=== PATIENT | female | born 1970 | race African-American/Black ===

== ENCOUNTER 2017-01-20 16:04 | Emergency (ER) | payer OTHER ==
[~2017-01-20] VITALS: Ht 154.9 cm; Wt 112.5 kg
[~2017-01-20 16:04] MED LIST: NAPR500 PO; PRED5PAK PO; TRAM50 PO; Z.0.NO CURRENT MEDS
[2017-01-20 16:18] VITALS: BP 158/85; PULSE 95; RESP 18; TEMP 97.7; O2SAT 99
--- NOTE | 2017-01-20 16:37 | PD ---
HPI Chief Complaint: Chest Pain Time Seen by Provider: 16:22 Travel History International Travel<30 days: No Contact w/Intl Traveler<30days: No History of Present Illness HPI 47yo F with PMH of HTN presents to the ED with c/o chest pain for 2 weeks but worst since last night. Said pain starts midsternal and sometimes goes to left and sometimes to the right. Pain is sharp, worst with arm movement and intermittent. Associated with sob. Denies any fever, n/v, abdominal pain. States bilateral lower extremity has been swelling for quite some time. Denies any history of PE/DVT, recent surgery, recent immobilization, control pills. PFSH Past Medical History Arthritis: Yes (RHEUMATOID) Blood Disorders: No Depression: Yes Heart Rhythm Problems: No Cancer: No Cardiac Catheterization: Yes (2009) Cardiovascular Problems: Yes High Cholesterol: No Chest Pain: Yes (HX OF, HEART CATH NEG 2009) Congestive Heart Failure: No Diabetes: No Diminished Hearing: No Endocrine: No Genitourinary: No Hypertension: No Immune Disorder: No Musculoskeletal: Yes (ARTHRITIS) Neurologic: Yes (HX SEIZURES) Psychiatric: No Reproductive: No Respiratory: No Myocardial Infarction: No Seizures: Yes (LAST ONE 1999) Thyroid Disease: No : 2 Para: 2 Miscarriage: 0 : 0 Tubal Ligation: Yes (1994) Past Surgical History Appendectomy: Yes Section: Yes (X 2) Coronary Artery Bypass Graft: No Gynecologic Surgery: Yes ( X 2) Other Surgery: Yes (C-SECTIONS) Social History Alcohol Use: No Tobacco Use: No Substance Use: No Allergies-Medications (Allergen,Severity, Reaction): Coded Allergies: iodine (Unverified Allergy, Severe, 10/22/16) potassium iodide (Unverified Allergy, Severe, 10/22/16) povidone-iodine (Unverified Allergy, Severe, 10/22/16) sodium iodide (Unverified Allergy, Severe, 10/22/16) sodium iodide (Unverified Allergy, Severe, 10/22/16) Reported Meds & Prescriptions Reported Meds & Active Scripts Active Tylenol (Acetaminophen) 325 Mg Tab 650 Mg PO Q6H PRN Reported Lisinopril-Hctz 20-25 Mg Tab 1 Tab PO DAILY Amlodipine (Amlodipine Besylate) 10 Mg Tab 10 Mg PO BID Review of Systems Except as stated in HPI: all other systems reviewed are Neg Physical Exam Narrative GENERAL: 47yo F not in distress. SKIN: Focused skin assessment warm/dry. HEAD: Atraumatic. Normocephalic. EYES: Pupils equal and round. No scleral icterus. No injection or drainage. ENT: No nasal bleeding or discharge. Mucous membranes pink and moist. NECK: Trachea midline. No JVD. CARDIOVASCULAR: Regular rate and rhythm. No murmur appreciated. HR: 90s. RESPIRATORY: No accessory muscle use. Clear to auscultation. Breath sounds equal bilaterally. Saturating at 98% on RA. GASTROINTESTINAL: Abdomen soft, non-tender, nondistended. MUSCULOSKELETAL: No obvious deformities. No clubbing. No cyanosis. Mild bilateral lower extremity edema that is equal. Distal pulses intact. NEUROLOGICAL: Awake and alert. No obvious cranial nerve deficits. Motor grossly within normal limits. Normal speech. PSYCHIATRIC: Appropriate mood and affect; insight and judgment normal. Data Data Last Documented VS Vital Signs Date Time Temp Pulse Resp B/P (MAP) Pulse Ox O2 Delivery O2 Flow Rate FiO2 01/20/17 18:58 170/88 (115) 97 01/20/17 17:31 85 18 Room Air 01/20/17 16:18 97.7 Orders Orders Basic Metabolic Panel (Bmp) (01/20/17 16:32) B-Type Natriuretic Peptide (01/20/17 16:32) Complete Blood Count With Diff (01/20/17 16:32) Prothrombin Time / Inr (Pt) (01/20/17 16:32) Act Partial Throm Time (Ptt) (01/20/17 16:32) Troponin I (01/20/17 16:32) Chest, Single Ap (01/20/17 16:32) Ibuprofen (Motrin) (01/20/17 16:45) Diazepam (Valium) (01/20/17 18:15) Ed Discharge Order (01/20/17 18:29) Electrocardiogram (01/20/17 16:09) Labs Laboratory Tests Test 01/20/17 17:20 White Blood Count 11.0 TH/MM3 Red Blood Count 4.38 MIL/MM3 Hemoglobin 11.9 GM/DL Hematocrit 35.7 % Mean Corpuscular Volume 81.6 FL Mean Corpuscular Hemoglobin 27.2 PG Mean Corpuscular Hemoglobin Concent 33.3 % Red Cell Distribution Width 13.7 % Platelet Count 268 TH/MM3 Mean Platelet Volume 9.7 FL Neutrophils (%) (Auto) 62.5 % Lymphocytes (%) (Auto) 28.7 % Monocytes (%) (Auto) 6.6 % Eosinophils (%) (Auto) 1.8 % Basophils (%) (Auto) 0.4 % Neutrophils # (Auto) 6.9 TH/MM3 Lymphocytes # (Auto) 3.2 TH/MM3 Monocytes # (Auto) 0.7 TH/MM3 Eosinophils # (Auto) 0.2 TH/MM3 Basophils # (Auto) 0.0 TH/MM3 CBC Comment DIFF FINAL Differential Comment Prothrombin Time 10.0 SEC Prothromb Time International Ratio 0.9 RATIO Activated Partial Thromboplast Time 26.5 SEC Blood Urea Nitrogen 14 MG/DL Creatinine 0.80 MG/DL Random Glucose 88 MG/DL Calcium Level 8.5 MG/DL Sodium Level 138 MEQ/L Potassium Level 3.6 MEQ/L Chloride Level 103 MEQ/L Carbon Dioxide Level 25.7 MEQ/L Anion Gap 9 MEQ/L Estimat Glomerular Filtration Rate 94 ML/MIN Troponin I LESS THAN 0.02 NG/ML B-Type Natriuretic Peptide LESS THAN 2 PG/ML MDM Medical Decision Making Medical Screen Exam Complete: Yes Emergency Medical Condition: Yes Interpretation(s) EKG: NSR 97bpm. Normal axis. No ST segment elevation or depression. Differential Diagnosis Musculoskeletal pain vs. atypical chest pain vs. CHF Narrative Course 47yo F with atypical chest pain. Pt followed with Dr. Cote and was told her chest pains are musculoskeletal. PE rule out by PERC rule. Labs reviewed, no leukocytosis. BMP unremarkable. Troponin negative. BNP negative. CXR showed changes in left base that is nonspecific. Could be an inflammatory process. Pt denies any fever or cough and is not a smoker. Do not feel pt has pneumonia clinically so will not give antibiotics. Pt given ibuprofen and valium which helped with the pain. Do not think it is cardiac. Will have pt follow up with PMD. Return precautions given. Diagnosis Primary Impression: Atypical chest pain Patient Instructions: General Instructions Departure Forms: Tests/Procedures Additional Instructions: Please follow up with your primary care physician in 2-3 days. Return to the ED if symptoms worsen. Med/Other Pt SpecificInfo: Prescription(s) given Scripts Acetaminophen (Tylenol) 325 Mg Tab 650 MG PO Q6H Y for PAIN SCALE 1 TO 4, #20 TAB 0 Refills Prov: Tonie Ariza DO 01/20/17 Disposition: 01 DISCHARGE HOME Condition: Stable Tonie Ariza DO Jan 20, 2017 16:37
[2017-01-20] MEDS ORDERED: IBUPROFEN 600 MG TAB PO ONE (16:45)
--- NOTE | 2017-01-20 16:56 | RADRPT ---
EXAM DATE/TIME: 01/20/2017 16:45 [facility] COMPARISON: CHEST SINGLE AP, September 01, 2012, 8:16. INDICATIONS : Chest pain. MEDICAL HISTORY : None. SURGICAL HISTORY : None. ENCOUNTER: Initial ACUITY: 3 days PAIN SCORE: 5/10 LOCATION: chest substernal. FINDINGS: Multiple changes left base. Right lung is clear. The heart and pulmonary vascularity are normal. Th e portion of the bony skeleton visualized is unremarkable. CONCLUSION: No multiple changes left base nonspecific. Could be an inflammatory process. Swapnil Mccabe MD FACR on January 20, 2017 at 16:54 Board Certified Radiologist. This report was verified electronically.
[2017-01-20] MEDS ORDERED: LISI20TA3 PO (17:22)
[2017-01-20] MEDS ORDERED: AMLO10TA2 PO (17:22)
[2017-01-20 17:30] LABS: AUTOMATED NEUTROPHIL # 6.9 TH/MM3 (1.8-7.7); BASOPHIL % 0.4 % (0.0-2.0); EOSINOPHIL # 0.2 TH/MM3 (0-0.4); EOSINOPHIL % 1.8 % (0.0-4.0); HEMATOCRIT 35.7 % (35.0-46.0); HEMO FLAGS DIFF FINAL; LYMPH % 28.7 % (9.0-44.0); LYMPHOCYTE # 3.2 TH/MM3 (1.0-4.8); MEAN CELL VOLUME 81.6 FL (80.0-100.0); MEAN CORPUSCULAR HEMOGLOBIN 27.2 PG (27.0-34.0); MEAN CORPUSCULAR HGB CONC 33.3 % (32.0-36.0); MONO % 6.6 % (0.0-8.0); NEUT % 62.5 % (16.0-70.0); PLATELET COUNT 268 TH/MM3 (150-450); RED BLOOD COUNT 4.38 MIL/MM3 (4.00-5.30); RED CELL DISTRIBUTION WIDTH 13.7 % (11.6-17.2)
[2017-01-20 17:31] VITALS: BP 172/87; PULSE 85; RESP 18; O2SAT 98
[2017-01-20 17:38] LABS: CHLORIDE 103 MEQ/L (98-107); POTASSIUM 3.6 MEQ/L (3.5-5.1); SODIUM (NA) 138 MEQ/L (136-145)
[2017-01-20 17:41] LABS: ANION GAP 9 MEQ/L (5-15); BICARBONATE 25.7 MEQ/L (21.0-32.0); BLOOD UREA NITROGEN 14 MG/DL (7-18)
[2017-01-20 17:42] LABS: APTT (PATIENT) 26.5 SEC (24.3-30.1); INTERNATIONAL NORMALIZED RATIO 0.9 RATIO
[2017-01-20 17:44] LABS: GLOMERULAR FILTRATION RATE 94 ML/MIN (>89)
[2017-01-20] MEDS ORDERED: TYLE325T PO (18:08)
[2017-01-20] MEDS ORDERED: DIAZEPAM 5 MG TAB PO ONE (18:15)
[2017-01-20 18:58] VITALS: BP 170/88
--- NOTE | 2017-01-21 14:23 | EKG ---
Date Performed: 01/20/2017 Time Performed: 16:09:49 PTAGE: 47 years EKG: Sinus rhythm NORMAL ECG PREVIOUS TRACING : 09/01/2012 08.02 Compared to prior tracing no significant change DOCTOR: Joe Warner Interpretating Date/Time 01/21/2017 14:17:18
== END 2017-01-20 18:59 | disposition home or self-care (01) ==
LOC: PHED 16:04
DX: R07.89 Other chest pain (principal); R06.02 Shortness of breath; I10 Essential (primary) hypertension; M19.90 Unspecified osteoarthritis, unspecified site
CPT/HCPCS: 71010; 80048; 83880; 84484; 85025; 85610; 85730; 93005; 99284